=== PATIENT | female | born 1940 | race African-American/Black ===

== ENCOUNTER 2018-01-18 18:57 | Emergency (ER) | payer MEDICARE ==
[2018-01-18] MEDS ORDERED: TYLENOL PO ONE (19:28)
--- NOTE | 2018-01-18 19:29 | Emergency Department Report ---
HPI - General Chief Complaint: Fall Time Seen by Provider: 01/18/18 19:27 - HPI HPI: 77-year-old female presents to the emergency department with a complaint of a headache after she slipped on some stairs and fell and hit her head. Her grandson is here translating for her. He says that his aunt witnessed the fall and the patient appeared to just missed a step and slid down about 2 steps in total. While she did hit her head, there was no loss of consciousness. Her only complaint is the headache and they deny any bleeding or laceration. She did not take anything for her symptoms prior to presentation. She has a history of hypertension and [id number] diabetes. ED Past Medical Hx - Past Medical History Previous Medical History?: Yes Hx Hypertension: Yes Hx CVA: Yes (cva no residual) Hx Diabetes: Yes Hx GERD: Yes Additional medical history: HYPERLIPIDEMIA - Surgical History Past Surgical History?: Yes Additional Surgical History: c section - Social History Smoking Status: Never Smoker Substance Use Type: None - Medications Home Medications: Home Medications Medication Instructions Recorded Confirmed Last Taken Type Amlodipine Besylate [Norvasc] 10 mg PO DAILY 03/20/14 08/16/15 1 Day Ago History ~08/15/15 Aspirin [Aspirin BABY CHEW TAB] 81 mg PO QDAY 03/20/14 08/16/15 1 Day Ago History ~08/15/15 Lisinopril/Hydrochlorothiazide 1 tab PO QDAY 03/20/14 08/16/15 1 Day Ago History [Zestoretic 20-12.5 mg] ~08/15/15 Metformin HCl [Metformin HCl ER] 500 mg PO BID 03/20/14 08/16/15 1 Day Ago History ~08/15/15 Simvastatin 40 mg PO QDAY 03/20/14 08/16/15 1 Day Ago History ~08/15/15 glipiZIDE [Glipizide Xl] 10 mg PO QDAY 03/20/14 08/16/15 1 Day Ago History ~08/15/15 Pantoprazole [Protonix] 20 mg PO BID #60 tablet. 03/21/14 08/16/15 1 Day Ago Rx ~08/15/15 Pantoprazole [Protonix] 40 mg PO BID #60 tablet 08/17/15 Unknown Rx ED Review of Systems ROS: Stated complaint: fell Other details as noted in HPI Comment: All other systems reviewed and negative Constitutional: denies: chills, fever Eyes: denies: eye pain, eye discharge, vision change ENT: denies: ear pain, throat pain Respiratory: denies: cough, shortness of breath, wheezing Cardiovascular: denies: chest pain, palpitations Gastrointestinal: denies: abdominal pain, nausea, diarrhea Genitourinary: denies: urgency, dysuria, discharge Musculoskeletal: denies: back pain, joint swelling, arthralgia Skin: denies: rash, lesions Neurological: headache. denies: numbness Physical Exam - Physical Exam Vital Signs: Vital Signs 01/18/18 19:18 Temperature 98.8 F Pulse Rate 78 Respiratory 18 Rate Blood Pressure 171/68 O2 Sat by Pulse 96 Oximetry ED Course Vital Signs 01/18/18 19:18 Temperature 98.8 F Pulse Rate 78 Respiratory 18 Rate Blood Pressure 171/68 O2 Sat by Pulse 96 Oximetry ED Medical Decision Making - Lab Data Result diagrams: 01/18/18 21:29 01/18/18 21:29 Critical care attestation.: If time is entered above; I have spent that time in minutes in the direct care of this critically ill patient, excluding procedure time. ED Disposition Clinical Impression: Dizziness, Hyperglycemia Headache Qualifiers: Headache type: unspecified Headache chronicity pattern: unspecified pattern Intractability: not intractable Qualified Code(s): R51 - Headache Fall Qualifiers: Encounter type: initial encounter Qualified Code(s): W19.XXXA - Unspecified fall, initial encounter Minor head injury without loss of consciousness Qualifiers: Encounter type: initial encounter Qualified Code(s): S09.90XA - Unspecified injury of head, initial encounter Disposition: - TO HOME OR SELFCARE Is pt being admited?: No Condition: Stable Instructions: Acute Headache (ED), Minor Head Injury (ED), Dizziness (ED), Diabetic Hyperglycemia (ED) Additional Instructions: Please follow-up with your primary care physician in the next few days. Return to the emergency department with any worsening of your symptoms or any acute distress. You can take Tylenol every 4 hours and ibuprofen every 6 hours, using weight- based dosing, as needed for discomfort. Please try and stay away from foods that are high in salt and caffeinated products to help with your blood pressure. Keep a blood pressure log. Try and stay away from foods that are high in sugar, carbohydrates and starches to help with your blood sugar. Keep a blood sugar log. Referrals: PRIMARY CARE, [Primary Care Provider] - [facility] Time of Disposition: 00:15
--- NOTE | 2018-01-18 20:55 | Cat Scan Report ---
FINAL REPORT PROCEDURE: CT HEAD/BRAIN WO CON TECHNIQUE: Computerized tomography of the head was performed without contrast material. HISTORY: FALL and pain COMPARISON: No prior studies are available for comparison. FINDINGS: There are diffuse involutional changes, with prominence of the ventricles and the sulci. There is periventricular white matter low attenuation, compatible with chronic microvascular ischemic changes. There is no CT evidence of intracranial mass, hemorrhage, acute territorial infarction, or hydrocephalus. The intracranial arteries are symmetric in density. There is scalp soft tissue swelling near the vertex. No acute fracture is seen. Visualized paranasal sinuses and mastoids are aerated. IMPRESSION: No CT evidence of acute intracranial abnormality. Scalp soft tissue swelling
--- NOTE | 2018-01-18 21:02 | Cat Scan Report ---
FINAL REPORT PROCEDURE: CT CERVICAL SPINE WO CON TECHNIQUE: Computerized tomography of the cervical spine was performed from the skull base to T1 without contrast material. HISTORY: FALL and pain COMPARISON: No prior studies are available for comparison. FINDINGS: The vertebral body heights and alignment are maintained. No acute fracture or subluxation is seen. There is a sclerotic density in the left facet region of the C7 vertebral body, which appears benign. 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 Prominent heterogeneous density of the right thyroid lobe with calcification. IMPRESSION: No acute fracture or subluxation is identified.
[2018-01-18] MEDS ORDERED: ANTIVERT PO ONE (21:14)
[2018-01-18 22:06] LABS: Hematocrit 37.1 % (30.3-42.9); Hemoglobin 11.8 gm/dl (10.1-14.3); Mean Corpuscular HGB Conc 32 % (30-34); Mean Corpuscular Hemoglobin 28 pg (28-32); Mean Corpuscular Volume 88 fl (79-97); Platelet Count 251 K/mm3 (140-440); Red Cell Distribution Width 15.2 % (13.2-15.2)
[2018-01-18 22:44] LABS: BUN/Creatinine Ratio 21; Blood Urea Nitrogen 15 mg/dL (7-17); Calcium 8.8 mg/dL (8.4-10.2); Hemolysis Index 0
[2018-01-18] MEDS ORDERED: HumuLIN R IV ONE (22:59)
[2018-01-18] MEDS ORDERED: NACL 0.9% 500 ML 500 ML IV ONE (22:59)
[2018-01-19 00:10] LABS: Basophils % (Manual) 0 % (0.0-1.8); Eosinophils % (Manual) 0 % (0.0-4.3); Monocytes % (Manual) 0 % (0.0-7.3); Total Cells Counted 100
[2018-01-19 00:11] LABS: Platelet Estimate Consistent w Auto
[2018-01-19 00:28] VITALS: BP 149/75
== END 2018-01-19 00:27 | disposition home or self-care (01) ==
LOC: ED 18:57
DX: S09.90XA Unspecified injury of head, initial encounter (principal); E11.65 Type 2 diabetes mellitus with hyperglycemia; R51 Headache; R42 Dizziness and giddiness; I10 Essential (primary) hypertension; K21.9 Gastro-esophageal reflux disease without esophagitis; E78.5 Hyperlipidemia, unspecified; Z79.82 Long term (current) use of aspirin; W10.9XXA Fall (on) (from) unspecified stairs and steps, initial encounter; Y93.89 Activity, other specified; Y99.8 Other external cause status; Y92.89 Other specified places as the place of occurrence of the external cause
CPT/HCPCS: 36415; 70450; 72125; 80048; 82962; 84484; 85007; 85025; 93005; 93010; 96374; 99284; J7040; J1815